=== PATIENT | female | born 1950 | race Caucasian/White ===

== ENCOUNTER 2020-01-21 09:26 | Day surgery (SDC) | payer MEDICARE, BC ==
[~2020-01-21 09:26] MED LIST: Acetaminophen 325 MG Tab PO PRN; Cataract Ophth Solution EYERT ONE; Moxifloxacin 0.5% Ophth Soln 3 ML Bottle EYERT ONE; Ondansetron 4 MG/2 ML SDV IVPUSH PRN; Phenylephrine 10% Ophth Soln 5 ML Bot EYERT PRN; Povidone-Iodine 5% Sterile Ophth Soln 30 ML Bottle EYERT ONE; Proparacaine 0.5% Ophth Soln 15 ML Bottle EYERT ONE; Sodium Chloride 0.9% 10 ML Syringe FLUSH PRN; Timolol Maleate 0.5% Ophth Soln 5 ML Bottle EYERT ONE; Tropicamide 1% Ophth Soln 15 ML Bottle EYERT ONE
[2020-01-21] MEDS ORDERED: Midazolam 1 MG/ML 2 ML SDV IV ONE (09:27)
[2020-01-21] MEDS ORDERED: Sodium Chloride 0.9% 10 ML Syringe IV ONE (09:27)
[2020-01-21] MEDS ORDERED: Dexamethasone 4 MG/ML SDV IV ONE (09:27)
[2020-01-21] MEDS ORDERED: Tetracaine HCl/PF 0.5% 4 ML Bottle EYERT ONE (10:45)
[2020-01-21] MEDS ORDERED: Diclofenac Sodium 0.1% Ophth Soln 5 ML Bottle EYERT ONE (10:46)
[2020-01-21] MEDS ORDERED: Lidocaine 1% 30 ML SDV ONE (10:46)
[2020-01-21] MEDS ORDERED: Apraclonidine 0.5% Ophth Soln 5 ML Bot EYERT ONE (10:46)
[2020-01-21] MEDS ORDERED: Chondroitin Sulfate/Hyaluronate Sodium Ophth Inj 0.75 ML Syringe EYERT ONE (10:46)
[2020-01-21] MEDS ORDERED: Dexamethasone/Neomycin/Polymyxin B Ophth Oint 3.5 GM Tube EYERT ONE (10:46)
[2020-01-21] MEDS ORDERED: Povidone-Iodine 5% Sterile Ophth Soln 30 ML Bottle EYERT ONE (10:46)
[2020-01-21] MEDS ORDERED: Balanced Salt Solution Ophth Irrig 500 ML Bottle IOCULAR ONE (10:47)
[2020-01-21] MEDS ORDERED: Vancomycin 500 MG SDV EYERT ONE (10:47)
[2020-01-21 12:35] VITALS: BP 177/114; PULSE 69
--- NOTE | 2020-01-22 08:54 | OR ---
DATE: 01/21/2020 PREOPERATIVE DIAGNOSIS: Visually significant mixed cataract, right eye. POSTOPERATIVE DIAGNOSIS: Visually significant mixed cataract, right eye. PROCEDURE: Extracapsular cataract extraction with intraocular lens implant, right eye. ANESTHESIA: Topical/local MAC. COMPLICATIONS: None. INDICATION: Ms. Dunaway was seen in the clinic with complaints of blurred vision. Examination revealed visually significant mixed cataract. I explained options, offered cataract surgery, and I explained risks, including but not limited to, infection, retinal detachment, loss of vision, need for additional surgery, and risks associated with anesthesia, amongst others. We discussed implant options. She has requested a monofocal implant. OPERATIVE DESCRIPTION: After informed consent was obtained and the risks, benefits, and alternatives were explained, the patient was brought to the operative suite and topical anesthesia was administered. The patient was then prepped and draped in the sterile fashion and attention was placed on the right eye. A sterile lid speculum was placed into the right eye to allow operative exposure. A full-thickness paracentesis was made in the temporal portion of the operative eye. Preservative-free lidocaine 0.1 mL was injected into the anterior chamber followed by viscoelastic. A full-thickness corneal incision was then made into the anterior chamber. A bent needle cystotome was used to create a small curtis in the anterior capsule. The capsulorrhexis forceps was then used to create a 360-degree curvilinear capsulorrhexis. The nucleus was then removed using a phacoemulsification handpiece and the remaining cortical material was then removed with irrigation and aspiration handpiece. Following removal of the cortical material, the capsular bag was then inspected and noted to be free of any holes or tears. Viscoelastic was then injected into the capsular bag and the intraocular lens was inserted into the capsular bag. The viscoelastic material was then removed from both the anterior and posterior chambers and from behind the IOL. The lens and capsular bag were then reinspected. The IOL was well centered and the capsular bag intact. The wound and paracentesis sites were inspected and hydrated with balanced saline solution. Both were found to be self- sealing. The intraocular pressure was assessed digitally and found to be within normal range. A good red reflex was noted at the completion of the procedure. No complications occurred during the operation. At the completion of the procedure, Maxitrol, Voltaren, and Iopidine drops were placed into the operative eye. A sterile eye shield was placed over the operative eye and the patient was transported to the postoperative recovery area having tolerated the procedure well. Postoperative instructions were given along with a postoperative appointment. The patient was advised to call with any questions or concerns. [facility] /[id number]
== END 2020-01-21 11:57 | disposition home or self-care (01) ==
LOC: DL.SDS 09:26
PROVIDERS: ATTEND Ophthalmology
DX: H25.813 Combined forms of age-related cataract, bilateral (principal); I10 Essential (primary) hypertension; E78.5 Hyperlipidemia, unspecified; Z88.8 Allergy status to other drugs, medicaments and biological substances; Z79.899 Other long term (current) drug therapy
CPT/HCPCS: 00142; 66984; A9270; J1100; J2001; J2250; J3370; V2632

== ENCOUNTER 2020-01-28 07:20 | Day surgery (SDC) | payer MEDICARE, BC ==
[~2020-01-28 07:20] MED LIST changes: -Acetaminophen 325 MG Tab PO PRN; -Cataract Ophth Solution EYERT ONE; -Moxifloxacin 0.5% Ophth Soln 3 ML Bottle EYERT ONE; -Ondansetron 4 MG/2 ML SDV IVPUSH PRN; -Phenylephrine 10% Ophth Soln 5 ML Bot EYERT PRN; -Povidone-Iodine 5% Sterile Ophth Soln 30 ML Bottle EYERT ONE; -Proparacaine 0.5% Ophth Soln 15 ML Bottle EYERT ONE; -Timolol Maleate 0.5% Ophth Soln 5 ML Bottle EYERT ONE; -Tropicamide 1% Ophth Soln 15 ML Bottle EYERT ONE
[2020-01-28] MEDS ORDERED: Dexamethasone 4 MG/ML SDV IV ONE (07:21)
[2020-01-28] MEDS ORDERED: Midazolam 1 MG/ML 2 ML SDV IV ONE (07:21)
[2020-01-28] MEDS ORDERED: Sodium Chloride 0.9% 10 ML Syringe IV ONE (07:21)
[2020-01-28] MEDS ORDERED: Ondansetron 4 MG/2 ML SDV IVPUSH PRN (07:30)
[2020-01-28] MEDS ORDERED: Moxifloxacin 0.5% Ophth Soln 3 ML Bottle EYELF ONE ×2 (07:30)
[2020-01-28] MEDS ORDERED: Acetaminophen 325 MG Tab PO PRN ×2 (07:30)
[2020-01-28] MEDS ORDERED: Cataract Ophth Solution EYELF ONE (07:30)
[2020-01-28] MEDS ORDERED: Phenylephrine 10% Ophth Soln 5 ML Bot EYELF ONE (07:30)
[2020-01-28] MEDS ORDERED: Timolol Maleate 0.5% Ophth Soln 5 ML Bottle EYELF ONE (07:30)
[2020-01-28] MEDS ORDERED: Phenylephrine 10% Ophth Soln 5 ML Bot EYELF PRN (07:30)
[2020-01-28] MEDS ORDERED: Tropicamide 1% Ophth Soln 15 ML Bottle EYELF ONE (07:30)
[2020-01-28] MEDS ORDERED: Povidone-Iodine 5% Sterile Ophth Soln 30 ML Bottle EYELF ONE ×3 (07:30→08:44)
[2020-01-28] MEDS ORDERED: Proparacaine 0.5% Ophth Soln 15 ML Bottle EYELF ONE (07:30)
[2020-01-28] MEDS ORDERED: Tetracaine HCl/PF 0.5% 4 ML Bottle EYELF ONE (08:43)
[2020-01-28] MEDS ORDERED: Lidocaine 1% 30 ML SDV ONE (08:44)
[2020-01-28] MEDS ORDERED: Apraclonidine 0.5% Ophth Soln 5 ML Bot EYELF ONE (08:44)
[2020-01-28] MEDS ORDERED: Diclofenac Sodium 0.1% Ophth Soln 5 ML Bottle EYELF ONE (08:45)
[2020-01-28] MEDS ORDERED: Dexamethasone/Neomycin/Polymyxin B Ophth Oint 3.5 GM Tube EYELF ONE (08:45)
[2020-01-28] MEDS ORDERED: Chondroitin Sulfate/Hyaluronate Sodium Ophth Inj 0.75 ML Syringe EYELF ONE (08:46)
[2020-01-28] MEDS ORDERED: Balanced Salt Solution Ophth Irrig 500 ML Bottle IOCULAR ONE (08:46)
[2020-01-28] MEDS ORDERED: Vancomycin 500 MG SDV EYELF ONE (08:46)
[2020-01-28 12:39] VITALS: BP 159/72; PULSE 64
--- NOTE | 2020-01-28 12:50 | OR ---
DATE: 01/28/2020 PREOPERATIVE DIAGNOSIS: Visually significant mixed cataract, left eye. POSTOPERATIVE DIAGNOSIS: Visually significant mixed cataract, left eye. PROCEDURE: Extracapsular cataract extraction with intraocular lens implant, left eye. ANESTHESIA: Topical/local MAC. COMPLICATIONS: None. INDICATION: Ms. Dunaway was seen in the clinic. She is unhappy with her vision, noticing a slow progressive change. Examination revealed visually significant cataract. I explained options, offered cataract surgery, and I explained risks, including, but not limited to, infection, retinal detachment, loss of vision, need for additional surgery, and risks associated with anesthesia. We discussed implant options. She has requested a monofocal implant. OPERATIVE DESCRIPTION: After informed consent was obtained and the risks, benefits, and alternatives were explained, the patient was brought to the operative suite and topical anesthesia was administered. The patient was then prepped and draped in the sterile fashion and attention was placed on the left eye. A sterile lid speculum was placed into the left eye to allow operative exposure. A full-thickness paracentesis was made in the temporal portion of the operative eye. Preservative-free lidocaine 0.1 mL was injected into the anterior chamber followed by viscoelastic. A full-thickness corneal incision was then made into the anterior chamber. A bent needle cystotome was used to create a small curtis in the anterior capsule. The capsulorrhexis forceps was then used to create a 360-degree curvilinear capsulorrhexis. The nucleus was then removed using a phacoemulsification handpiece and the remaining cortical material was then removed with irrigation and aspiration handpiece. Following removal of the cortical material, the capsular bag was then inspected and noted to be free of any holes or tears. Viscoelastic was then injected into the capsular bag and the intraocular lens was inserted into the capsular bag. The viscoelastic material was then removed from both the anterior and posterior chambers and from behind the IOL. The lens and capsular bag were then reinspected. The IOL was well centered and the capsular bag intact. The wound and paracentesis sites were inspected and hydrated with balanced saline solution. Both were found to be self- sealing. The intraocular pressure was assessed digitally and found to be within normal range. A good red reflex was noted at the completion of the procedure. No complications occurred during the operation. At the completion of the procedure, Maxitrol, Voltaren, and Iopidine drops were placed into the operative eye. A sterile eye shield was placed over the operative eye and the patient was transported to the postoperative recovery area having tolerated the procedure well. Postoperative instructions were given along with a postoperative appointment. The patient was advised to call with any questions or concerns. [facility] /[id number]
== END 2020-01-28 09:59 | disposition home or self-care (01) ==
LOC: DL.SDS 07:20
PROVIDERS: ATTEND Ophthalmology
DX: H25.812 Combined forms of age-related cataract, left eye (principal); I10 Essential (primary) hypertension; F41.9 Anxiety disorder, unspecified; Z79.899 Other long term (current) drug therapy; Z88.8 Allergy status to other drugs, medicaments and biological substances
CPT/HCPCS: 00142; 66984; A9270; J1100; J2001; J2250; J3370; V2632

== ENCOUNTER 2020-12-20 18:42 | Emergency (ER) | payer MEDICARE, BC ==
--- NOTE | 2020-12-20 19:00 | CT ---
PROCEDURE INFORMATION: Exam: CT Head Without Contrast Exam date and time: 12/20/2020 6:51 PM Age: 70 years old Clinical indication: Altered mental status/memory loss; Confusion or disorientation; Additional info: Confusion/stroke code TECHNIQUE: Imaging protocol: Computed tomography of the head without contrast. Radiation optimization: All CT scans at this facility use at least one of these dose optimization techniques: automated exposure control; mA and/or kV adjustment per patient size (includes targeted exams where dose is matched to clinical indication); or iterative reconstruction. Other technique: STROKE PROTOCOL was implemented. COMPARISON: CT Head wo Cont 12/17/2017 10:33 AM FINDINGS: Brain: No mass effect or midline shift. No abnormal densities are seen intracranially; no sign of acute intracranial hemorrhage or cerebral edema. Cerebral ventricles: No ventriculomegaly. Paranasal sinuses: Visualized sinuses are unremarkable. No fluid levels. Mastoid air cells: Visualized mastoid air cells are well aerated. Bones/joints: Skull base and overlying calvarium are intact. No suspicious lytic or osteosclerotic lesions. Incidental osteoma right frontal outer table. Soft tissues: Unremarkable. IMPRESSION: 1. Negative head CT. 2. [place] Stroke Program Early CT Score (ASPECTS) = 10.
--- NOTE | 2020-12-20 19:28 | EDM.PDOC ---
ED HPI GENERAL MEDICAL PROBLEM - General Chief Complaint: Neuro Symptoms/Deficits Stated Complaint: STROKE CODE BY AMBULANCE Time Seen by Provider: 12/20/20 19:05 Source of Information: Reports: Patient, EMS, Family, RN History Limitations: Reports: Altered Mental Status - History of Present Illness INITIAL COMMENTS - FREE TEXT/NARRATIVE: ED via [facility] with report possible stroke, Last normal estimate around 330 this afternoon, Patient seems confused and body not doing what she wants to. EMS noted family poor historians. Documented hx atrial fibrillation. Reported hx TIA's. On Xarelto, , medication not filled since 11/04. Reported patient went to recliner and slept from 1230- 3:00-3:30, Seemed off on awakening and difficulty moving about Patient found in bathroom standing difficulty following command, Oriented to person place on arrival. Dausghter states patient noncompliant with medications - Related Data Allergies Allergy/AdvReac Type Severity Reaction Status Date / Time bupropion Allergy Unknown unknown Verified 12/20/20 19:41 lisinopril Allergy Unknown UNKNOWN Verified 12/20/20 19:41 Home Meds: Home Meds Ibuprofen [Advil] 200 mg PO ASDIRECTED PRN 05/13/16 [History] Simvastatin [Zocor] 20 mg PO BEDTIME 05/13/16 [History] Cholecalciferol (Vitamin D3) [Vitamin D3] 1,000 units PO DAILY 01/14/20 [History] Clotrimazole [Lotrimin AF 1% Crm] 1 squirt TOP BID 01/14/20 [History] Furosemide 40 mg PO DAILY 01/14/20 [History] Levothyroxine [Synthroid] 88 mcg PO DAILY 01/14/20 [History] Metoprolol Succinate [Toprol XL] 25 mg PO BEDTIME 01/14/20 [History] Mupirocin Calcium [Mupirocin] 1 applic TOP BID 01/14/20 [History] Nystatin 500,000 unit PO BID 01/14/20 [History] Omeprazole 40 mg PO DAILY PRN 01/14/20 [History] PARoxetine [Paxil CR] 50 mg PO DAILY 01/14/20 [History] Potassium Chloride [Klor-Con M20] 20 meq PO DAILY 01/14/20 [History] Vush-Ocwx-Yhecv [Cataract Opthalmic Solution] 1 drop EYERT ASDIRECTED 01/14/20 [History] Rivaroxaban [Xarelto] 20 mg PO DAILY 01/14/20 [History] Spironolactone [Aldactone] 25 mg PO DAILY 01/14/20 [History] busPIRone [Buspar] 5 mg PO BID 01/14/20 [History] Past Medical History HEENT History: Reports: Cataract, Impaired Vision, Other (See Below) Cardiovascular History: Reports: Afib, High Cholesterol, Hypertension Respiratory History: Reports: None Gastrointestinal History: Reports: GERD Genitourinary History: Reports: None 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 recurring cellulitis right leg - Infectious Disease History Infectious Disease History: Reports: Measles - Past Surgical History HEENT Surgical History: Reports: None, Cataract Surgery Cardiovascular Surgical History: Reports: Other (See Below) Other Cardiovascular Surgeries/Procedures: cardioversion 2 years ago Respiratory Surgical History: Reports: None GI Surgical History: Reports: Cholecystectomy Female Surgical History: Reports: Section, Hysterectomy Neurological Surgical History: Reports: None Musculoskeletal Surgical History: Reports: None Oncologic Surgical History: Reports: None Social & Family History - Family History Family Medical History: No Pertinent Family History - Caffeine Use Caffeine Use: Reports: Coffee, Soda ED ROS GENERAL - Review of Systems Review Of Systems: Comprehensive ROS is negative, except as noted in HPI. ED EXAM, NEURO - Physical Exam Exam: See Below Exam Limited By: No Limitations General Appearance: Alert, Obese Eye Exam: Bilateral Eye: EOMI (slight drigt in gaze ot left), PERRL (3mm) Ears: Normal External Exam, Hearing Grossly Normal Nose: Normal Inspection Throat/Mouth: Normal Inspection Head Exam: Atraumatic, Normocephalic Neck: Normal Inspection Respiratory/Chest: No Respiratory Distress, Lungs Clear, Normal Breath Sounds Cardiovascular: Normal Peripheral Pulses, Irregularly Irregular GI/Abdominal: Normal Bowel Sounds, Soft Neurological: Alert, Withdraws to Pain, Other (cognitive defecit, slowed response time intermittent dozing between questions. difficulty following command. does move extremeties pulling at BP cuffor attempting to pullat onitor leads. ). No: Oriented x 3 (oriented person place), Abnormal Light Touch, Tremor Extremities: Pedal Edema Skin Exam: Warm, Dry, Intact #1 Interpretation EKG Date: 12/20/20 Time: 19:05 Rhythm: A-Fib Rate (Beats/Min): 88 Course - Vital Signs Last Recorded V/S: Last Vital Signs Temp 99.1 F 12/20/20 19:00 Pulse 97 12/20/20 19:00 Resp 18 12/20/20 19:00 BP 122/92 H 12/20/20 19:00 Pulse Ox 98 12/20/20 19:00 - Orders/Labs/Meds Labs: Laboratory Tests 12/20/20 12/20/20 12/20/20 Range/Units 18:59 19:04 19:04 WBC 14.4 H (5.0-10.0) 10^3/uL RBC 4.61 (4.2-5.4) 10^6/uL Hgb 14.0 D (12.0-16.0) g/dL Hct 41.9 (37.0-47.0) % MCV 90.9 (80-100) fL MCH 30.4 (27.0-34.0) pg MCHC 33.4 (33.0-35.0) g/dL Plt Count 228 D (150-450) 10^3/uL Neut % (Auto) 84.4 H (42.2-75.2) % Lymph % (Auto) 7.2 L (20.5-50.1) % Hamblen % (Auto) 7.8 (2-8) % Eos % (Auto) 0.3 L (1.0-3.0) % Baso % (Auto) 0.3 (0.0-1.0) % PT 13.5 H (9.0-12.0) SEC INR 1.4 H (0.9-1.2) Sodium (136-145) mmol/L Potassium (3.5-5.1) mmol/L Chloride (98-107) mmol/L Carbon Dioxide (21-32) mmol/L Anion Gap (7-13) mEq/L BUN (7-18) mg/dL Creatinine (0.55-1.02) mg/dL Est Cr Clr Drug Dosing Estimated GFR (MDRD) BUN/Creatinine Ratio (No establ ref range) Glucose (70-99) mg/dL POC Glucose 99 (70-99) mg/dL Calcium (8.5-10.1) mg/dL Magnesium (1.8-2.4) mg/dL Total Bilirubin (0.2-1.0) mg/dL AST (15-37) U/L ALT (14-59) U/L Alkaline Phosphatase (46-116) U/L Ammonia (11-32) umol/L Troponin I High Sens (<=51) pg/mL Total Protein (6.4-8.2) g/dL Albumin (3.4-5.0) g/dL Globulin Albumin/Globulin Ratio Amylase (25-115) U/L Lipase (73-393) U/L TSH, Ultra Sensitive (0.36-3.74) uIU/mL Urine Color (YELLOW) Urine Appearance (CLEAR) Urine pH (5.0-9.0) Ur Specific Ross (1.005-1.030) Urine Protein (NEGATIVE) Urine Glucose (UA) (NEGATIVE) Urine Ketones (NEGATIVE) Urine Occult Blood (NEGATIVE) Urine Nitrite (NEGATIVE) Urine Bilirubin (NEGATIVE) Urine Urobilinogen (0.2-1.0) mg/dL Ur Leukocyte Esterase (NEGATIVE) Urine Opiates Screen (NEGATIVE) Ur Oxycodone Screen (NEGATIVE) Urine Methadone Screen (NEGATIVE) Ur Barbiturates Screen (NEGATIVE) U Tricyclic Antidepress (NEGATIVE) Ur Phencyclidine Scrn (NEGATIVE) Ur Amphetamine Screen (NEGATIVE) U Methamphetamines Scrn (NEGATIVE) Urine MDMA Screen (NEGATIVE) U Benzodiazepines Scrn (NEGATIVE) Urine Cocaine Screen (NEGATIVE) U Marijuana (THC) Screen (NEGATIVE) Ethyl Alcohol (0) mg/dL SARS-CoV-2 RNA (MARY ELLEN) (NEGATIVE) 12/20/20 12/20/20 12/20/20 Range/Units 19:04 19:04 19:04 WBC (5.0-10.0) 10^3/uL RBC (4.2-5.4) 10^6/uL Hgb (12.0-16.0) g/dL Hct (37.0-47.0) % MCV (80-100) fL MCH (27.0-34.0) pg MCHC (33.0-35.0) g/dL Plt Count (150-450) 10^3/uL Neut % (Auto) (42.2-75.2) % Lymph % (Auto) (20.5-50.1) % Hamblen % (Auto) (2-8) % Eos % (Auto) (1.0-3.0) % Baso % (Auto) (0.0-1.0) % PT (9.0-12.0) SEC INR (0.9-1.2) Sodium 147 H (136-145) mmol/L Potassium 4.1 (3.5-5.1) mmol/L Chloride 113 H (98-107) mmol/L Carbon Dioxide 22 (21-32) mmol/L Anion Gap 16.1 H (7-13) mEq/L BUN 19 H (7-18) mg/dL Creatinine 1.45 H (0.55-1.02) mg/dL Est Cr Clr Drug Dosing TNP Estimated GFR (MDRD) 35 BUN/Creatinine Ratio 13.1 (No establ ref range) Glucose 101 H (70-99) mg/dL POC Glucose (70-99) mg/dL Calcium 8.4 L (8.5-10.1) mg/dL Magnesium 1.9 (1.8-2.4) mg/dL Total Bilirubin 1.8 H (0.2-1.0) mg/dL AST 26 (15-37) U/L ALT 21 (14-59) U/L Alkaline Phosphatase 79 (46-116) U/L Ammonia 34 H (11-32) umol/L Troponin I High Sens 16 (<=51) pg/mL Total Protein 5.2 L (6.4-8.2) g/dL Albumin 2.5 L (3.4-5.0) g/dL Globulin 2.7 Albumin/Globulin Ratio 0.93 Amylase 42 (25-115) U/L Lipase 61 L (73-393) U/L TSH, Ultra Sensitive 1.31 (0.36-3.74) uIU/mL Urine Color (YELLOW) Urine Appearance (CLEAR) Urine pH (5.0-9.0) Ur Specific Ross (1.005-1.030) Urine Protein (NEGATIVE) Urine Glucose (UA) (NEGATIVE) Urine Ketones (NEGATIVE) Urine Occult Blood (NEGATIVE) Urine Nitrite (NEGATIVE) Urine Bilirubin (NEGATIVE) Urine Urobilinogen (0.2-1.0) mg/dL Ur Leukocyte Esterase (NEGATIVE) Urine Opiates Screen (NEGATIVE) Ur Oxycodone Screen (NEGATIVE) Urine Methadone Screen (NEGATIVE) Ur Barbiturates Screen (NEGATIVE) U Tricyclic Antidepress (NEGATIVE) Ur Phencyclidine Scrn (NEGATIVE) Ur Amphetamine Screen (NEGATIVE) U Methamphetamines Scrn (NEGATIVE) Urine MDMA Screen (NEGATIVE) U Benzodiazepines Scrn (NEGATIVE) Urine Cocaine Screen (NEGATIVE) U Marijuana (THC) Screen (NEGATIVE) Ethyl Alcohol < 3 (0) mg/dL SARS-CoV-2 RNA (MARY ELLEN) (NEGATIVE) 12/20/20 12/20/20 12/20/20 Range/Units 19:31 19:31 19:46 WBC (5.0-10.0) 10^3/uL RBC (4.2-5.4) 10^6/uL Hgb (12.0-16.0) g/dL Hct (37.0-47.0) % MCV (80-100) fL MCH (27.0-34.0) pg MCHC (33.0-35.0) g/dL Plt Count (150-450) 10^3/uL Neut % (Auto) (42.2-75.2) % Lymph % (Auto) (20.5-50.1) % Hamblen % (Auto) (2-8) % Eos % (Auto) (1.0-3.0) % Baso % (Auto) (0.0-1.0) % PT (9.0-12.0) SEC INR (0.9-1.2) Sodium (136-145) mmol/L Potassium (3.5-5.1) mmol/L Chloride (98-107) mmol/L Carbon Dioxide (21-32) mmol/L Anion Gap (7-13) mEq/L BUN (7-18) mg/dL Creatinine (0.55-1.02) mg/dL Est Cr Clr Drug Dosing Estimated GFR (MDRD) BUN/Creatinine Ratio (No establ ref range) Glucose (70-99) mg/dL POC Glucose (70-99) mg/dL Calcium (8.5-10.1) mg/dL Magnesium (1.8-2.4) mg/dL Total Bilirubin (0.2-1.0) mg/dL AST (15-37) U/L ALT (14-59) U/L Alkaline Phosphatase (46-116) U/L Ammonia (11-32) umol/L Troponin I High Sens (<=51) pg/mL Total Protein (6.4-8.2) g/dL Albumin (3.4-5.0) g/dL Globulin Albumin/Globulin Ratio Amylase (25-115) U/L Lipase (73-393) U/L TSH, Ultra Sensitive (0.36-3.74) uIU/mL Urine Color Yellow (YELLOW) Urine Appearance Clear (CLEAR) Urine pH 6.0 (5.0-9.0) Ur Specific Ross >= 1.030 (1.005-1.030) Urine Protein Negative (NEGATIVE) Urine Glucose (UA) Negative (NEGATIVE) Urine Ketones Negative (NEGATIVE) Urine Occult Blood Negative (NEGATIVE) Urine Nitrite Negative (NEGATIVE) Urine Bilirubin Small H (NEGATIVE) Urine Urobilinogen 1.0 (0.2-1.0) mg/dL Ur Leukocyte Esterase Negative (NEGATIVE) Urine Opiates Screen Negative (NEGATIVE) Ur Oxycodone Screen Negative (NEGATIVE) Urine Methadone Screen Negative (NEGATIVE) Ur Barbiturates Screen Negative (NEGATIVE) U Tricyclic Antidepress Negative (NEGATIVE) Ur Phencyclidine Scrn Negative (NEGATIVE) Ur Amphetamine Screen Negative (NEGATIVE) U Methamphetamines Scrn Negative (NEGATIVE) Urine MDMA Screen Negative (NEGATIVE) U Benzodiazepines Scrn Negative (NEGATIVE) Urine Cocaine Screen Negative (NEGATIVE) U Marijuana (THC) Screen Negative (NEGATIVE) Ethyl Alcohol (0) mg/dL SARS-CoV-2 RNA (MARY ELLEN) Negative (NEGATIVE) - Re-Assessments/Exams Free Text/Narrative Re-Assessment/Exam: TC Dr Edward, Neuro [facility], Accepting patient. TC ED Dr. Fisher via [facility] [employer]. Departure - Departure Time of Disposition: 21:00 Disposition: DC/Tfer to Acute Hospital 02 Condition: Undetermined Clinical Impression: Non compliance w medication regimen Altered mental status Qualifiers: Altered mental status type: disorientation Qualified Code(s): R41.0 - Disorientation, unspecified Atrial fibrillation Qualifiers: Atrial fibrillation type: unspecified chronic Qualified Code(s): I48.20 - Chronic atrial fibrillation, unspecified - Discharge Information *PRESCRIPTION DRUG MONITORING PROGRAM REVIEWED*: No *COPY OF PRESCRIPTION DRUG MONITORING REPORT IN PATIENT BEN: No Referrals: PCP,None [Primary Care Provider] - Forms: ED Department Discharge Sepsis Event Note (ED) - Focused Exam Vital Signs: Vital Signs Temp Pulse Resp BP Pulse Ox 12/20/20 19:00 99.1 F 97 18 122/92 H 98
[2020-12-20 19:35] LABS: ANION GAP 16.1 mEq/L (7-13); CHLORIDE,CL 113 mmol/L (98-107); SODIUM,NA 147 mmol/L (136-145)
[2020-12-20 19:41] VITALS: BP 122/92; PULSE 97
== END 2020-12-20 20:40 ==
LOC: DL.ED 18:42
DX: R41.0 Disorientation, unspecified (principal); I48.20 Chronic atrial fibrillation, unspecified; E78.00 Pure hypercholesterolemia, unspecified; I10 Essential (primary) hypertension; E66.9 Obesity, unspecified; Z68.41 Body mass index [BMI] 40.0-44.9, adult; Z91.14 Patient's other noncompliance with medication regimen; Z88.8 Allergy status to other drugs, medicaments and biological substances; Z79.899 Other long term (current) drug therapy; Z79.01 Long term (current) use of anticoagulants
CPT/HCPCS: 36415; 70450; 80053; 80305; 80307; 81003; 82140; 82150; 82947; 83690; 83735; 84443; 84484; 85025; 85610; 93005; 99285; U0002; 99284

== ENCOUNTER 2021-09-27 15:05 | Inpatient (IN) | payer MEDICARE, BC ==
[2021-09-27 16:09] LABS: CORONAVIRUS COVID-19 NAA NEGATIVE (NEGATIVE)
[2021-09-27 16:20] LABS: ANION GAP 14.9 mEq/L (7-13); CHLORIDE,CL 107 mmol/L (98-107); SODIUM,NA 146 mmol/L (136-145)
[2021-09-27] MEDS ORDERED: Sodium Chloride 0.9% 1,000 ML IV ONE (16:28)
[2021-09-27] MEDS ORDERED: Ondansetron 4 MG/2 ML SDV IVPUSH PRN (19:29)
[2021-09-27] MEDS ORDERED: Polyethylene Glycol 3350 Powder 17 GM Packet PO PRN (19:29)
[2021-09-27] MEDS ORDERED: Albuterol/Ipratropium 3.0-0.5 MG/3 ML Neb Soln NEB PRN (19:29)
[2021-09-27] MEDS: Acetaminophen 325 MG Tab PO PRN (19:57)
[2021-09-27] MEDS ORDERED: Acetaminophen 325 MG Tab PO PRN (20:24)
[2021-09-27] MEDS ORDERED: Omeprazole 20 MG Cap.CR PO PRN (20:25)
[2021-09-27] MEDS ORDERED: Sodium Chloride 0.9% 1,000 ML IV SCH (20:30)
[2021-09-27] MEDS: busPIRone 15 MG Tab PO SCH (21:34)
[2021-09-27] MEDS: Simvastatin 10 MG Tab PO SCH (21:34)
[2021-09-27] MEDS: Metoprolol Succinate 25 MG Tab.ER PO SCH (21:35)
[2021-09-28] MEDS: Levothyroxine 100 MCG Tab PO SCH (08:04)
[2021-09-28] MEDS: PARoxetine 20 MG Tab PO SCH (08:06)
[2021-09-28] MEDS: Rivaroxaban 10 MG Tab PO SCH (08:06)
[2021-09-28] MEDS: Cholecalciferol (Vitamin D3) 25 MCG Tab PO SCH (08:07)
[2021-09-28] MEDS: busPIRone 15 MG Tab PO SCH ×2 (08:09→20:21)
[2021-09-28] MEDS: Acetaminophen 325 MG Tab PO PRN (08:14)
[2021-09-28] MEDS ORDERED: Cyclobenzaprine 10 MG Tab PO ONE ×2 (08:29→11:15)
[2021-09-28] MEDS ORDERED: Gabapentin 300 MG Cap PO ONE ×2 (08:30→11:15)
[2021-09-28] MEDS ORDERED: Cyclobenzaprine 10 MG Tab PO SCH (16:00)
[2021-09-28] MEDS ORDERED: Gabapentin 100 MG Cap PO SCH (16:00)
[2021-09-28] MEDS ORDERED: Gabapentin 100 MG Cap PO PRN (18:01)
[2021-09-28] MEDS: Metoprolol Succinate 25 MG Tab.ER PO SCH (20:19)
[2021-09-28] MEDS: Simvastatin 10 MG Tab PO SCH (20:19)
[2021-09-28] MEDS: Nystatin Topical Powder 30 GM Bottle TOP PRN (20:22)
[2021-09-29] MEDS ORDERED: Cyclobenzaprine 10 MG Tab PO PRN
[2021-09-29 06:07] LABS: ANION GAP 11.7 mEq/L (7-13)
[2021-09-29] MEDS: Cholecalciferol (Vitamin D3) 25 MCG Tab PO SCH (09:26)
[2021-09-29] MEDS: PARoxetine 20 MG Tab PO SCH (09:26)
[2021-09-29] MEDS: Rivaroxaban 10 MG Tab PO SCH (09:26)
[2021-09-29] MEDS: Levothyroxine 100 MCG Tab PO SCH (09:26)
[2021-09-29] MEDS: busPIRone 15 MG Tab PO SCH ×2 (09:27→21:16)
[2021-09-29] MEDS ORDERED: Dextrose 5% in Water 250 ML IV SCH (11:30)
[2021-09-29 18:44] LABS: ANION GAP 8.4 mEq/L (7-13)
[2021-09-29] MEDS ORDERED: Dextrose 5%-Lactated Ringers 1,000 ML IV SCH (19:15)
[2021-09-29] MEDS: Metoprolol Succinate 25 MG Tab.ER PO SCH (21:15)
[2021-09-29] MEDS: Mineral Oil/White Petrolatum Crm 113 GM Jar TOP SCH (21:17)
[2021-09-29] MEDS: Simvastatin 10 MG Tab PO SCH (21:17)
[2021-09-29] MEDS: Nystatin Topical Powder 30 GM Bottle TOP PRN (21:20)
[2021-09-30] MEDS: Levothyroxine 100 MCG Tab PO SCH (05:25)
[2021-09-30 06:29] LABS: ANION GAP 9.4 mEq/L (7-13)
[2021-09-30] MEDS: PARoxetine 20 MG Tab PO SCH (09:17)
[2021-09-30] MEDS: busPIRone 15 MG Tab PO SCH ×2 (09:17→21:11)
[2021-09-30] MEDS: Rivaroxaban 10 MG Tab PO SCH (09:17)
[2021-09-30] MEDS: Cholecalciferol (Vitamin D3) 25 MCG Tab PO SCH (09:18)
[2021-09-30] MEDS: Mineral Oil/White Petrolatum Crm 113 GM Jar TOP SCH ×2 (09:19→21:12)
[2021-09-30] MEDS: Metoprolol Succinate 25 MG Tab.ER PO SCH (21:06)
[2021-09-30] MEDS: Simvastatin 10 MG Tab PO SCH (21:11)
[2021-10-01] MEDS: Levothyroxine 100 MCG Tab PO SCH (05:07)
[2021-10-01 06:01] LABS: ANION GAP 11.5 mEq/L (7-13)
[2021-10-01] MEDS ORDERED: cefTRIAXone 2 GM in Sodium Chloride 0.9% 100 ML IV ONE (08:03)
[2021-10-01] MEDS: Mineral Oil/White Petrolatum Crm 113 GM Jar TOP SCH ×2 (10:05→21:23)
[2021-10-01] MEDS: Cholecalciferol (Vitamin D3) 25 MCG Tab PO SCH (10:06)
[2021-10-01] MEDS: Nystatin Topical Powder 30 GM Bottle TOP PRN (10:06)
[2021-10-01] MEDS: busPIRone 15 MG Tab PO SCH ×2 (10:07→21:17)
[2021-10-01] MEDS: PARoxetine 20 MG Tab PO SCH (10:07)
[2021-10-01] MEDS: Rivaroxaban 10 MG Tab PO SCH (10:07)
[2021-10-01] MEDS: Simvastatin 10 MG Tab PO SCH (21:17)
[2021-10-01] MEDS: Metoprolol Succinate 25 MG Tab.ER PO SCH (21:20)
[2021-10-02] MEDS: Levothyroxine 100 MCG Tab PO SCH (06:39)
[2021-10-02] MEDS ORDERED: cefTRIAXone 2 GM in Sodium Chloride 0.9% 100 ML IV SCH (09:00)
[2021-10-02] MEDS: Cholecalciferol (Vitamin D3) 25 MCG Tab PO SCH (09:25)
[2021-10-02] MEDS: Rivaroxaban 10 MG Tab PO SCH (09:25)
[2021-10-02] MEDS: PARoxetine 20 MG Tab PO SCH (09:25)
[2021-10-02] MEDS: busPIRone 15 MG Tab PO SCH ×2 (09:27→20:39)
[2021-10-02] MEDS: Nystatin Topical Powder 30 GM Bottle TOP PRN (09:28)
[2021-10-02] MEDS: Mineral Oil/White Petrolatum Crm 113 GM Jar TOP SCH ×2 (09:29→21:00)
[2021-10-02] MEDS: Acetaminophen 325 MG Tab PO PRN ×2 (13:44→20:41)
[2021-10-02] MEDS: Metoprolol Succinate 25 MG Tab.ER PO SCH (20:39)
[2021-10-02] MEDS: Simvastatin 10 MG Tab PO SCH (20:40)
[2021-10-03 05:51] LABS: ANION GAP 13.4 mEq/L (7-13)
[2021-10-03] MEDS: Levothyroxine 100 MCG Tab PO SCH (05:59)
[2021-10-03] MEDS: busPIRone 15 MG Tab PO SCH ×2 (08:55→20:54)
[2021-10-03] MEDS: Rivaroxaban 10 MG Tab PO SCH (08:57)
[2021-10-03] MEDS: Cholecalciferol (Vitamin D3) 25 MCG Tab PO SCH (08:58)
[2021-10-03] MEDS: PARoxetine 20 MG Tab PO SCH (08:58)
[2021-10-03] MEDS: Levofloxacin 250 MG Tab PO SCH (09:02)
[2021-10-03] MEDS: Mineral Oil/White Petrolatum Crm 113 GM Jar TOP SCH ×2 (09:03→20:56)
[2021-10-03] MEDS: Nystatin Topical Powder 30 GM Bottle TOP PRN (09:03)
[2021-10-03] MEDS: Metoprolol Succinate 25 MG Tab.ER PO SCH (20:54)
[2021-10-03] MEDS: Simvastatin 10 MG Tab PO SCH (20:54)
[2021-10-04] MEDS: Levothyroxine 100 MCG Tab PO SCH (05:53)
[2021-10-04] MEDS: Rivaroxaban 10 MG Tab PO SCH (09:23)
[2021-10-04] MEDS: Cholecalciferol (Vitamin D3) 25 MCG Tab PO SCH (09:24)
[2021-10-04] MEDS: busPIRone 15 MG Tab PO SCH ×2 (09:25→20:40)
[2021-10-04] MEDS: PARoxetine 20 MG Tab PO SCH (09:25)
[2021-10-04] MEDS: Levofloxacin 250 MG Tab PO SCH (09:27)
[2021-10-04] MEDS: Acetaminophen 325 MG Tab PO PRN (09:27)
[2021-10-04] MEDS: Nystatin Topical Powder 30 GM Bottle TOP PRN (09:29)
[2021-10-04] MEDS: Mineral Oil/White Petrolatum Crm 113 GM Jar TOP SCH ×2 (09:30→20:41)
[2021-10-04 18:21] LABS: BASE EXCESS VENOUS 0.9 mmol/l ((-2)-(+3)); BICARBONATE,VENOUS 27 mmol/l (19-25); O2 DELIVERY DEVICE ROOM AIR; O2 SATURATION VENOUS 33.1 % (60-80); PCO2 VENOUS 51 mmHg (41-51); PH,VENOUS 7.34 (7.31-7.41); PO2 VENOUS 31 mmHg (35-42)
[2021-10-04 18:26] LABS: O2 FLOW RATE 0
[2021-10-04] MEDS: Acetaminophen 325 MG Tab PO SCH (20:39)
[2021-10-04] MEDS: Metoprolol Succinate 25 MG Tab.ER PO SCH (20:41)
[2021-10-04] MEDS: Nystatin Topical Powder 30 GM Bottle TOP SCH (20:42)
[2021-10-05] MEDS: Levothyroxine 100 MCG Tab PO SCH (05:24)
[2021-10-05 06:48] LABS: ANION GAP 14.4 mEq/L (7-13)
[2021-10-05] MEDS: Rivaroxaban 10 MG Tab PO SCH (08:39)
[2021-10-05] MEDS: Acetaminophen 325 MG Tab PO SCH ×3 (08:41→21:08)
[2021-10-05] MEDS: Cholecalciferol (Vitamin D3) 25 MCG Tab PO SCH (08:42)
[2021-10-05] MEDS: busPIRone 15 MG Tab PO SCH ×2 (08:43→21:11)
[2021-10-05] MEDS: Nystatin Topical Powder 30 GM Bottle TOP SCH ×2 (10:00→21:14)
[2021-10-05] MEDS: Mineral Oil/White Petrolatum Crm 113 GM Jar TOP SCH ×2 (10:00→21:13)
[2021-10-05] MEDS: Ciprofloxacin 500 MG Tab PO SCH ×2 (14:21→21:10)
[2021-10-05] MEDS ORDERED: PARoxetine 20 MG Tab PO SCH (21:00)
[2021-10-05] MEDS: Metoprolol Succinate 25 MG Tab.ER PO SCH (21:10)
[2021-10-06] MEDS: Levothyroxine 100 MCG Tab PO SCH (06:20)
[2021-10-06 07:23] LABS: ANION GAP 12.6 mEq/L (7-13)
[2021-10-06] MEDS: Ciprofloxacin 500 MG Tab PO SCH (08:04)
[2021-10-06] MEDS: busPIRone 15 MG Tab PO SCH (08:04)
[2021-10-06] MEDS: Cholecalciferol (Vitamin D3) 25 MCG Tab PO SCH (08:04)
[2021-10-06] MEDS: Rivaroxaban 10 MG Tab PO SCH (08:04)
[2021-10-06] MEDS: Acetaminophen 325 MG Tab PO SCH ×2 (08:05→16:46)
[2021-10-06] MEDS: Nystatin Topical Powder 30 GM Bottle TOP SCH (08:06)
[2021-10-06] MEDS: Mineral Oil/White Petrolatum Crm 113 GM Jar TOP SCH (08:07)
[2021-10-06 13:51] VITALS: BP 127/71; PULSE 58
== END 2021-10-06 14:07 | DRG 682 ==
LOC: DL.ED 15:05 → INTOOBSV 18:05 → UNDOADMOB 18:05 → DL.MS 18:05 → OBSVTOIN 18:05 → DL.ED 18:10 → DL.MS 09-28 14:21 → OBSVTOIN 09-28 14:21
PROVIDERS: ADMIT Internal Medicine; ATTEND Student in an Organized Health Care Education/Training Program
DX: R53.1 Weakness (principal); M54.40 Lumbago with sciatica, unspecified side; G93.40 Encephalopathy, unspecified; G89.29 Other chronic pain; M40.56 Lordosis, unspecified, lumbar region; M47.819 Spondylosis without myelopathy or radiculopathy, site unspecified; N17.9 Acute kidney failure, unspecified; G93.41 Metabolic encephalopathy; G92.8 Other toxic encephalopathy; E87.1 Hypo-osmolality and hyponatremia; N39.0 Urinary tract infection, site not specified; E87.2 Acidosis; Z68.43 Body mass index [BMI] 50.0-59.9, adult; Z68.42 Body mass index [BMI] 45.0-49.9, adult; I13.0 Hypertensive heart and chronic kidney disease with heart failure and stage 1 through stage 4 chronic kidney disease, or unspecified chronic kidney disease; I50.32 Chronic diastolic (congestive) heart failure; B37.89 Other sites of candidiasis; Z20.822 Contact with and (suspected) exposure to COVID-19; K21.9 Gastro-esophageal reflux disease without esophagitis; E80.6 Other disorders of bilirubin metabolism; M51.16 Intervertebral disc disorders with radiculopathy, lumbar region; E88.09 Other disorders of plasma-protein metabolism, not elsewhere classified; T48.1X5A Adverse effect of skeletal muscle relaxants [neuromuscular blocking agents], initial encounter; E87.8 Other disorders of electrolyte and fluid balance, not elsewhere classified; I12.9 Hypertensive chronic kidney disease with stage 1 through stage 4 chronic kidney disease, or unspecified chronic kidney disease; E86.0 Dehydration; R73.9 Hyperglycemia, unspecified; D64.9 Anemia, unspecified; E87.5 Hyperkalemia; E66.01 Morbid (severe) obesity due to excess calories; Z79.890 Hormone replacement therapy; I48.91 Unspecified atrial fibrillation; M85.80 Other specified disorders of bone density and structure, unspecified site; M40.46 Postural lordosis, lumbar region; L30.4 Erythema intertrigo; E78.00 Pure hypercholesterolemia, unspecified; H54.7 Unspecified visual loss; E78.5 Hyperlipidemia, unspecified; E03.9 Hypothyroidism, unspecified; F32.A Depression, unspecified; F41.9 Anxiety disorder, unspecified; E55.9 Vitamin D deficiency, unspecified; I87.2 Venous insufficiency (chronic) (peripheral); N18.30 Chronic kidney disease, stage 3 unspecified; D63.1 Anemia in chronic kidney disease; Z88.8 Allergy status to other drugs, medicaments and biological substances; Z86.73 Personal history of transient ischemic attack (TIA), and cerebral infarction without residual deficits; Z86.718 Personal history of other venous thrombosis and embolism; Z79.01 Long term (current) use of anticoagulants; Z79.899 Other long term (current) drug therapy; Z28.82 Immunization not carried out because of caregiver refusal
CPT/HCPCS: 0240U; 36415; 70450; 74176; 80048; 80053; 81001; 82140; 82306; 82803; 83605; 83735; 84439; 84443; 85025; 85027; 86140; 87086; 87088; 87186; 97110-GO; 97110-GP; 97116-GP; 97161-GP; 97166-GO; 97530-GO; 97530-GP; 99222; 99232; 99238; 99284; 99285-25; A9270-GY; G0378; J0696; J7030; J7060; J7121; U0002

== ENCOUNTER 2021-11-02 11:51 | Inpatient (IN) | payer MEDICARE, BC ==
[2021-11-02 13:08] LABS: PTT,PARTIAL THROMBOPLSTIN TIME 44.8 SEC (22.0-34.0)
[2021-11-02 13:12] LABS: ANION GAP 10.5 mEq/L (7-13); CHLORIDE,CL 110 mmol/L (98-107); SODIUM,NA 145 mmol/L (136-145)
[2021-11-02 13:36] LABS: AMPHETAMINES,URINE NEGATIVE (NEGATIVE); BARBITURATES,URINE NEGATIVE (NEGATIVE); BENZODIAZEPINE,URINE NEGATIVE (NEGATIVE); MDMA (ECSTASY), URINE NEGATIVE (NEGATIVE); METHADONE,URINE NEGATIVE (NEGATIVE); METHAMPHETAMINES,URINE NEGATIVE (NEGATIVE); OPIATES,URINE NEGATIVE (NEGATIVE); OXYCODONE,URINE NEGATIVE (NEGATIVE); PHENCYCLIDINE,URINE NEGATIVE (NEGATIVE); TCA,URINE NEGATIVE (NEGATIVE)
[2021-11-02] MEDS ORDERED: Acetaminophen 325 MG Tab PO PRN ×2 (15:22→15:50)
[2021-11-02] MEDS ORDERED: Polyethylene Glycol 3350 Powder 17 GM Packet PO PRN (15:23)
[2021-11-02] MEDS ORDERED: Docusate Sodium 100 MG Cap PO PRN (15:50)
[2021-11-02] MEDS ORDERED: Ondansetron 4 MG/2 ML SDV IVPUSH PRN (15:50)
[2021-11-02] MEDS ORDERED: Bisacodyl 5 MG Tab PO PRN (15:50)
[2021-11-02] MEDS ORDERED: Albuterol/Ipratropium 3.0-0.5 MG/3 ML Neb Soln NEB PRN (15:50)
[2021-11-02] MEDS: cefTRIAXone 1 GM in Sodium Chloride 0.9% 50 ML IV SCH (17:37)
[2021-11-02] MEDS: Metoprolol Succinate 25 MG Tab.ER PO SCH (20:11)
[2021-11-02] MEDS: Simvastatin 10 MG Tab PO SCH (20:11)
[2021-11-02] MEDS: Nystatin Topical Powder 30 GM Bottle TOP SCH (20:12)
[2021-11-02] MEDS ORDERED: Betamethasone Dipropionate/Clotrimazole 0.05-1% Crm 15 GM Tube TOP PRN (21:00)
[2021-11-03] MEDS: Levothyroxine 100 MCG Tab PO SCH (05:08)
[2021-11-03] MEDS: Omeprazole 20 MG Cap.CR PO SCH (05:08)
[2021-11-03 07:05] LABS: CHLORIDE,CL 113 mmol/L (98-107); SODIUM,NA 145 mmol/L (136-145)
[2021-11-03] MEDS ORDERED: CLOTRIMAZOLE TOP PRN (08:14)
[2021-11-03] MEDS ORDERED: BETAMETHASONE TOP PRN (08:14)
[2021-11-03] MEDS: Nystatin Topical Powder 30 GM Bottle TOP SCH ×2 (09:17→20:49)
[2021-11-03] MEDS: Rivaroxaban 10 MG Tab PO SCH (09:17)
[2021-11-03] MEDS: Potassium Chloride 10 MEQ Tab.ER PO SCH (09:17)
[2021-11-03] MEDS: Cholecalciferol (Vitamin D3) 25 MCG Tab PO SCH (09:17)
[2021-11-03] MEDS: cefTRIAXone 1 GM in Sodium Chloride 0.9% 50 ML IV SCH (18:09)
[2021-11-03] MEDS: Metoprolol Succinate 25 MG Tab.ER PO SCH (20:17)
[2021-11-03] MEDS: Simvastatin 10 MG Tab PO SCH (20:20)
[2021-11-04] MEDS: Omeprazole 20 MG Cap.CR PO SCH (06:09)
[2021-11-04] MEDS: Levothyroxine 100 MCG Tab PO SCH (06:09)
[2021-11-04 07:02] LABS: ANION GAP 12.6 mEq/L (7-13); CHLORIDE,CL 112 mmol/L (98-107); SODIUM,NA 145 mmol/L (136-145)
[2021-11-04] MEDS: Cholecalciferol (Vitamin D3) 25 MCG Tab PO SCH (08:28)
[2021-11-04] MEDS: Rivaroxaban 10 MG Tab PO SCH (08:28)
[2021-11-04] MEDS: Potassium Chloride 10 MEQ Tab.ER PO SCH (08:28)
[2021-11-04] MEDS ORDERED: Ciprofloxacin in D5W 200 MG in Premix Bag 1 BAG IV ONE ×2 (12:00)
[2021-11-04] MEDS: Nystatin Topical Powder 30 GM Bottle TOP SCH ×2 (12:17→21:00)
[2021-11-04] MEDS: Metoprolol Succinate 25 MG Tab.ER PO SCH (20:55)
[2021-11-04] MEDS: Simvastatin 10 MG Tab PO SCH (20:57)
[2021-11-05] MEDS: Omeprazole 20 MG Cap.CR PO SCH (06:01)
[2021-11-05] MEDS: Levothyroxine 100 MCG Tab PO SCH (06:01)
[2021-11-05 06:49] LABS: ANION GAP 11.7 mEq/L (7-13); CHLORIDE,CL 112 mmol/L (98-107); SODIUM,NA 145 mmol/L (136-145)
[2021-11-05] MEDS: Cholecalciferol (Vitamin D3) 25 MCG Tab PO SCH (08:47)
[2021-11-05] MEDS: Potassium Chloride 10 MEQ Tab.ER PO SCH (08:48)
[2021-11-05] MEDS: Rivaroxaban 10 MG Tab PO SCH (08:48)
[2021-11-05] MEDS: Nystatin Topical Powder 30 GM Bottle TOP SCH ×2 (08:49→20:39)
[2021-11-05] MEDS: Ciprofloxacin in D5W 200 MG in Premix Bag 1 BAG IV SCH ×2 (08:49)
[2021-11-05] MEDS: Sodium Chloride 0.9% 10 ML Syringe FLUSH PRN (08:53)
[2021-11-05] MEDS: Simvastatin 10 MG Tab PO SCH (20:40)
[2021-11-05] MEDS: Metoprolol Succinate 25 MG Tab.ER PO SCH (20:40)
[2021-11-06] MEDS: Omeprazole 20 MG Cap.CR PO SCH (05:26)
[2021-11-06] MEDS: Levothyroxine 100 MCG Tab PO SCH (05:26)
[2021-11-06 06:37] LABS: ANION GAP 12.6 mEq/L (7-13); CHLORIDE,CL 110 mmol/L (98-107); SODIUM,NA 143 mmol/L (136-145)
[2021-11-06] MEDS: Potassium Chloride 10 MEQ Tab.ER PO SCH (08:08)
[2021-11-06] MEDS: Cholecalciferol (Vitamin D3) 25 MCG Tab PO SCH (08:08)
[2021-11-06] MEDS: Rivaroxaban 10 MG Tab PO SCH (08:08)
[2021-11-06] MEDS: Ciprofloxacin in D5W 200 MG in Premix Bag 1 BAG IV SCH ×2 (08:10)
[2021-11-06] MEDS: Sodium Chloride 0.9% 10 ML Syringe FLUSH PRN (08:10)
[2021-11-06] MEDS: Nystatin Topical Powder 30 GM Bottle TOP SCH ×2 (08:11→21:11)
[2021-11-06] MEDS: Simvastatin 10 MG Tab PO SCH (21:10)
[2021-11-06] MEDS: Metoprolol Succinate 25 MG Tab.ER PO SCH (21:10)
[2021-11-07] MEDS: Omeprazole 20 MG Cap.CR PO SCH (05:53)
[2021-11-07] MEDS: Levothyroxine 100 MCG Tab PO SCH (05:53)
[2021-11-07] MEDS: Rivaroxaban 10 MG Tab PO SCH (07:39)
[2021-11-07] MEDS: Potassium Chloride 10 MEQ Tab.ER PO SCH (07:39)
[2021-11-07 07:49] VITALS: BP 129/64; PULSE 90
[2021-11-07] MEDS: Cholecalciferol (Vitamin D3) 25 MCG Tab PO SCH (07:59)
[2021-11-07] MEDS: Nystatin Topical Powder 30 GM Bottle TOP SCH (07:59)
[2021-11-07] MEDS: Ciprofloxacin in D5W 200 MG in Premix Bag 1 BAG IV SCH ×2 (07:59)
== END 2021-11-07 11:55 | disposition other institution (70) | DRG 689 ==
LOC: DL.ED 11:51 → DL.MS 14:10 → UNDOADMOB 14:10 → OBSVTOIN 15:53 → INTOOBSV 15:53
PROVIDERS: ADMIT Internal Medicine; ATTEND Internal Medicine
DX: N30.01 Acute cystitis with hematuria (principal); G93.41 Metabolic encephalopathy; E46 Unspecified protein-calorie malnutrition; I48.91 Unspecified atrial fibrillation; Z68.42 Body mass index [BMI] 45.0-49.9, adult; D68.9 Coagulation defect, unspecified; E72.20 Disorder of urea cycle metabolism, unspecified; I13.0 Hypertensive heart and chronic kidney disease with heart failure and stage 1 through stage 4 chronic kidney disease, or unspecified chronic kidney disease; I50.32 Chronic diastolic (congestive) heart failure; D64.9 Anemia, unspecified; Z20.822 Contact with and (suspected) exposure to COVID-19; B95.1 Streptococcus, group B, as the cause of diseases classified elsewhere; E87.8 Other disorders of electrolyte and fluid balance, not elsewhere classified; M19.90 Unspecified osteoarthritis, unspecified site; E66.01 Morbid (severe) obesity due to excess calories; L30.4 Erythema intertrigo; H54.7 Unspecified visual loss; E03.9 Hypothyroidism, unspecified; E78.5 Hyperlipidemia, unspecified; Z79.01 Long term (current) use of anticoagulants; N18.30 Chronic kidney disease, stage 3 unspecified; K21.9 Gastro-esophageal reflux disease without esophagitis; M51.36 Other intervertebral disc degeneration, lumbar region; F41.9 Anxiety disorder, unspecified; F32.A Depression, unspecified; E78.00 Pure hypercholesterolemia, unspecified; E55.9 Vitamin D deficiency, unspecified; M51.24 Other intervertebral disc displacement, thoracic region; Z86.73 Personal history of transient ischemic attack (TIA), and cerebral infarction without residual deficits; Z88.8 Allergy status to other drugs, medicaments and biological substances; Z79.899 Other long term (current) drug therapy; Z90.49 Acquired absence of other specified parts of digestive tract; Z90.710 Acquired absence of both cervix and uterus; Z79.890 Hormone replacement therapy
CPT/HCPCS: 36415; 70450; 80053; 80305; 80307; 81001; 82140; 82947; 83605; 83735; 83880; 84443; 84484; 85025; 85610; 85730; 86140; 87086; 87088; 87186; 93005; 93010; 99284; U0002; 80048; 99285-25; A9270-GY; J0696; J0744; J2405; J3490